=== PATIENT | female | born 1950 | race Asian ===

== ENCOUNTER → 2017-12-11 | Outpatient (CLI) | payer OTHER ==
[~2017-12-11] MED LIST: ASPI81TA80 PO; ATOR80TA PO; INSU100C4 SQ; METF10002 PO; PIOG15TA6 PO; [UNRECOGNIZED DRUG - CODE] GT
== END | disposition home or self-care (01) ==
LOC: EMPHLTH 11:00
PROVIDERS: ATTEND Internal Medicine
DX: R76.11 Nonspecific reaction to tuberculin skin test without active tuberculosis (principal)

== ENCOUNTER 2023-07-27 17:11 | Emergency (ER) | payer MEDICARE, OTHER ==
[~2023-07-27] VITALS: Ht 157.5 cm; Wt 84.1 kg
[~2023-07-27 17:11] MED LIST changes: +GLYB5TAB9 GT; +METF-446 PO; -METF10002 PO; -[UNRECOGNIZED DRUG - CODE] GT
[2023-07-27 17:20] VITALS: TEMP 98.2
[2023-07-27 17:45] VITALS: BP 154/79; PULSE 81; RESP 17
[2023-07-27] MEDS ORDERED: ACETAMINOPHEN 500 MG TABLET PO ONE (18:00)
== END 2023-07-27 20:27 | disposition home or self-care (01) ==
LOC: EMS 17:12
DX: S13.4XXA Sprain of ligaments of cervical spine, initial encounter (principal); E11.9 Type 2 diabetes mellitus without complications; E78.00 Pure hypercholesterolemia, unspecified; Z98.890 Other specified postprocedural states; V89.2XXA Person injured in unspecified motor-vehicle accident, traffic, initial encounter; Y93.89 Activity, other specified; Y92.89 Other specified places as the place of occurrence of the external cause; Y99.8 Other external cause status
CPT/HCPCS: 70450; 72125; 99284

== ENCOUNTER 2023-12-21 00:31 | Emergency (ER) | payer MEDICARE, OTHER ==
[~2023-12-21] VITALS: Ht 162.6 cm; Wt 95.5 kg
[2023-12-21 01:26] LABS: COVID AG,FIA SOURCE NASAL SWAB
[2023-12-21 01:26] LABS: GLUCOMETER DEV NAME(LOC) ER.6; GLUCOSE,POINT OF CARE 114 MG/DL (70-110)
[2023-12-21 01:29] LABS: RESPIRATORY SYNCYTIAL VIRS,FIA NEGATIVE (Negative)
[2023-12-21 01:30] LABS: INFLUENZA TYPE A NEGATIVE FOR TYPE A (NEGATIVE); INFLUENZA TYPE B NEGATIVE FOR TYPE B (NEGATIVE); SARS-COV2 (COVID) ANTIGEN,FIA Negative (Negative)
[2023-12-21 01:46] LABS: BASOPHILS % (AUTO) 0.6 % (0.0-2.0); EOSINOPHILS % (AUTO) 0.9 % (1.0-6.0); HEMATOCRIT 41.7 % (36-46); HEMOGLOBIN 12.8 g/dL (12.0-16.0); LYMPHOCYTES # (AUTO) 2.4 K/uL (1.0-4.8); LYMPHOCYTES % (AUTO) 17.7 % (22.0-44.0); MEAN CORPUSCULAR HEMOGLOBIN 22.2 pg (26.0-34.0); MEAN CORPUSCULAR HGB CONC 30.8 G/dL (31.0-37.0); MEAN CORPUSCULAR VOLUME 72 fL (80-100); MONOCYTES # (AUTO) 1.8 K/uL (0.1-1.0); MONOCYTES % (AUTO) 12.8 % (2.0-9.0); NEUTROPHILS # (AUTO) 9.4 K/uL (1.8-7.7); PLATELET COUNT (AUTO) 291 K/uL (150-450); RED BLOOD CELL COUNT(AUTO) 5.78 MIL/uL (4.00-5.20); RED CELL DISTRIBUTION WIDTH 16.3 % (11.5-14.5); WHITE BLOOD COUNT (AUTO) 13.8 K/uL (4.5-11.0)
[2023-12-21 02:05] LABS: ANION GAP 7 mmol/L (8-16); CALCIUM, TOTAL 8.7 mg/dL (8.8-10.5); CARBON DIOXIDE 33 mmol/L (22-29); CHLORIDE 99 mmol/L (98-107); CREATININE 0.76 mg/dL (0.60-1.30); GLOMERULAR FILTR. RATE CALC > 60 mL/min (>60); GLUCOSE,RANDOM 104 mg/dL (70-110); POTASSIUM 4.1 mmol/L (3.5-5.1); SODIUM SERUM 139 mmol/L (136-145); UREA NITROGEN, BLOOD 9 mg/dL (7-18)
[2023-12-21 02:09] LABS: RBC MORPHOLOGY COMMENT ABNORMAL RBC MORPH
[2023-12-21 02:11] LABS: ALANINE AMINOTRANSFERASE 15 U/L (12-78); ALBUMIN 2.8 g/dL (3.4-5.0); ALKALINE PHOSPHATASE 67 U/L (46-116); ASPARTATE AMINOTRANSFERASE 27 U/L (15-37); BILIRUBIN,TOTAL 0.3 mg/dL (0.1-1.0); TOTAL PROTEIN, SERUM 9.2 g/dL (6.4-8.2)
[2023-12-21] MEDS: MethylPREDNISolone SOD SUCC 125 MG/2 ML VIAL IVP ONE (02:22)
[2023-12-21] MEDS: IPRATROPIUM BROMIDE 0.5 MG/2.5 ML NEB SOLUTION NEB ONE ×2 (03:11→04:25)
[2023-12-21] MEDS: ALBUTEROL SULFATE 2.5 MG/0.5 ML NEB SOLUTION NEB ONE ×2 (03:12→04:25)
[2023-12-21] MEDS ORDERED: 0.9% SODIUM CHLORIDE 10 ML SYRINGE IVP PRN (03:15)
[2023-12-21 03:27] VITALS: PULSE 96; RESP 18; O2SAT 97; O2SAT 98
[2023-12-21] MEDS: CefTRIAXone 1 GM/DEXTROSE 50 ML IV ONE (03:51)
[2023-12-21] MEDS: SODIUM CHLORIDE 0.9% 1,650 ML IV ONE (03:51)
[2023-12-21] MEDS: FUROSEMIDE 40 MG/4 ML VIAL IVP ONE (04:26)
[2023-12-21] MEDS: ASPIRIN 325 MG TABLET PO ONE (04:27)
[2023-12-21 04:29] VITALS: BP 124/67; TEMP 97.8
[2023-12-21 04:31] VITALS: PULSE 90; RESP 17; O2SAT 95
[2023-12-21 04:31] LABS: TROPONIN I-HIGH SENSITIVITY 15 ng/L (<51)
== END 2023-12-21 07:20 | disposition short-term general hospital (02) ==
LOC: EMS 00:34
DX: A41.9 Sepsis, unspecified organism (principal); J18.9 Pneumonia, unspecified organism; R53.1 Weakness; E11.9 Type 2 diabetes mellitus without complications; E78.00 Pure hypercholesterolemia, unspecified; Z88.0 Allergy status to penicillin; Z20.822 Contact with and (suspected) exposure to COVID-19
CPT/HCPCS: 99291; 96365; 71045; 96375; 87426; 80053; 82962; 83605; 83880; 87420; 84484; 85025; 87040; 87804; 36415; 94640; 93005; 84145; J0696; J1940; J2930; J7030; 99285; J7613

== ENCOUNTER 2024-06-09 16:45 | Inpatient (IN) | payer MEDICARE, OTHER ==
[~2024-06-09] VITALS: Ht 162.6 cm; Wt 95.5 kg
[2024-06-09 19:40] LABS: GLUCOMETER DEV NAME(LOC) ER.7; GLUCOSE,POINT OF CARE 264 MG/DL (70-110)
[2024-06-09] MEDS: SODIUM CHLORIDE 0.9% 2,850 ML IV ONE (19:53)
[2024-06-09] MEDS: HYDROmorphone HCL 2 MG/ML SYRINGE IVP ONE (19:54)
[2024-06-09] MEDS: ACETAMINOPHEN 500 MG TABLET PO ONE (19:54)
[2024-06-09] MEDS: ONDANSETRON HCL 4 MG/2 ML VIAL IVP ONE (19:54)
[2024-06-09] MEDS: 0.9% SODIUM CHLORIDE 10 ML SYRINGE IVP PRN (20:23)
[2024-06-09] MEDS: CefTRIAXone 1 GM/DEXTROSE 50 ML IV ONE (20:23)
[2024-06-09] MEDS: KETOROLAC TROMETHAMINE 30 MG/ML VIAL IVP ONE (20:23)
[2024-06-09 20:44] LABS: ANION GAP 9 mmol/L (8-16); CALCIUM, TOTAL 8.4 mg/dL (8.8-10.5); CARBON DIOXIDE 27 mmol/L (22-29); CHLORIDE 97 mmol/L (98-107); CREATININE 1.05 mg/dL (0.60-1.30); GLOMERULAR FILTR. RATE CALC 51 mL/min (>60); GLUCOSE,RANDOM 273 mg/dL (70-110); SODIUM SERUM 133 mmol/L (136-145); UREA NITROGEN, BLOOD 18 mg/dL (7-18)
[2024-06-09 20:47] LABS: HEMATOCRIT 43.1 % (36-46); HEMOGLOBIN 13.3 g/dL (12.0-16.0); MEAN CORPUSCULAR HEMOGLOBIN 22.2 pg (26.0-34.0); MEAN CORPUSCULAR HGB CONC 30.8 G/dL (31.0-37.0); MEAN CORPUSCULAR VOLUME 72 fL (80-100); PLATELET COUNT (AUTO) 254 K/uL (150-450); RED BLOOD CELL COUNT(AUTO) 5.98 MIL/uL (4.00-5.20); RED CELL DISTRIBUTION WIDTH 15.4 % (11.5-14.5); WHITE BLOOD COUNT (AUTO) 22.3 K/uL (4.5-11.0)
[2024-06-09 20:49] LABS: PROTHROMBIN TIME 10.9 SEC (9.4-11.6)
[2024-06-09 20:50] LABS: ALANINE AMINOTRANSFERASE 12 U/L (12-78); ALKALINE PHOSPHATASE 63 U/L (46-116); ASPARTATE AMINOTRANSFERASE 19 U/L (15-37); BILIRUBIN,TOTAL 0.8 mg/dL (0.1-1.0); LIPASE 25 U/L (16-77); TOTAL PROTEIN, SERUM 8.3 g/dL (6.4-8.2)
[2024-06-09 21:05] LABS: LACTIC ACID 2.1 mmol/L (0.4-2.0)
[2024-06-09 21:09] LABS: BAND NEUTROPHILS % (MANUAL) 5 % (0-5); LYMPHOCYTES % (MANUAL) 7 % (22-44); MONOCYTES % (MANUAL) 10 % (2-9); SEGMENTED NEUTROPHILS % 78 % (40-70); TOTAL CELLS COUNTED 100
[2024-06-09 21:10] LABS: RBC MORPHOLOGY COMMENT ABNORMAL RBC MORPH
[2024-06-09 21:18] LABS: APPEARANCE,URINE TURBID (CLEAR); BILIRUBIN,URINE NEGATIVE (NEGATIVE); COLOR,URINE ORANGE (YELLOW); GLUCOSE, URINE (UA) 300-500 mg/dL (NEGATIVE); KETONES,URINE TRACE mg/dL (NEGATIVE); LEUKOCYTE ESTERASE ,URINE LARGE (NEGATIVE); NITRATE,URINE NEGATIVE (NEGATIVE); OCCULT BLOOD,URINE LARGE (NEGATIVE); PROTEIN,URINE 300-600,SEE CONFIRM mg/dL (NEGATIVE); SPECIFIC GRAVITIY, URINE 1.018 (1.003-1.030); UROBILINOGEN,URINE <=1.0 mg/dL (<=1.0)
[2024-06-09] MEDS ORDERED: OxyCODONE HCL/ACETAMINOPHEN 5-325 MG TABLET PO PRN (21:30)
[2024-06-09] MEDS ORDERED: DEXTROSE 50%-WATER 25 GM/50 ML SYRINGE IVP PRN (21:30)
[2024-06-09 21:51] LABS: WBC,URINE Full Field /HPF (0-5)
[2024-06-09 21:52] LABS: BACTERIA,URINE Moderate /HPF (None Seen); SQUAMOUS EPITHELIAL CELL,UR Few /LPF (None Seen)
[2024-06-09 21:53] LABS: SULFOSALICYLIC ACID,URINE 1+ (Negative)
[2024-06-09] MEDS: SODIUM CHLORIDE 0.9% 1,000 ML IV ONE (22:28)
[2024-06-09] MEDS: HEPARIN SODIUM,PORCINE 5,000 UNITS/ML VIAL SQ SCH (23:46)
[2024-06-10 02:15] VITALS: BP 134/50; PULSE 64; RESP 20; TEMP 98.7; O2SAT 95
[2024-06-10] MEDS: INSULIN LISPRO 100 UNITS/ML SQ PRN (05:33)
[2024-06-10 06:11] LABS: GLUCOMETER DEV NAME(LOC) 4E.2; GLUCOSE,POINT OF CARE 276 MG/DL (70-110)
[2024-06-10] MEDS ORDERED: ROCURONIUM BROMIDE 10 MG/ML 5 ML VIAL ONE (06:20)
[2024-06-10] MEDS ORDERED: PROPOFOL 1% ISO-OSM 1000 MG/100 ML BOTTLE ONE (06:20)
[2024-06-10] MEDS ORDERED: PHENYLEPHRINE HCL 10 MG/ML VIAL ONE (06:20)
[2024-06-10] MEDS ORDERED: SUGAMMADEX SODIUM 200 MG/2 ML VIAL IVP ONE (06:20)
[2024-06-10] MEDS ORDERED: LIDOCAINE/PF 2% 5 ML VIAL ONE (06:20)
[2024-06-10] MEDS ORDERED: EPHEDrine SULFATE 50 MG/ML VIAL ONE (06:20)
[2024-06-10] MEDS ORDERED: ONDANSETRON HCL 4 MG/2 ML VIAL ONE (06:20)
[2024-06-10] MEDS ORDERED: PROPOFOL 1% 20 ML VIAL IVP ONE (06:20)
[2024-06-10] MEDS ORDERED: GLYCOPYRROLATE 0.2 MG/ML VIAL ONE (06:20)
[2024-06-10] MEDS ORDERED: 0.9% SODIUM CHLORIDE 10 ML VIAL ONE (06:20)
[2024-06-10] MEDS ORDERED: INFLUENZA VIRUS VACCINE TVS (6MO+) 2024-25/PF 45 MCG/0.5 ML SYRINGE IM. ONE (06:30)
[2024-06-10] MEDS: FAMOTIDINE 20 MG TABLET PO SCH (08:02)
[2024-06-10] MEDS: SODIUM CHLORIDE 0.9% 1,000 ML IV SCH (08:13)
[2024-06-10 08:36] VITALS: BP 108/49; PULSE 78; RESP 19; TEMP 98; O2SAT 95
[2024-06-10] MEDS ORDERED: IOHEXOL 240 MG/ML 20 ML VIAL ONE ×2 (12:30→12:37)
[2024-06-10] MEDS ORDERED: SODIUM CL IRRIG SOLN BAG 3,000 ML IRRIG ONE (12:31)
[2024-06-10] MEDS ORDERED: FentaNYL CITRATE PF 100 MCG/2 ML VIAL IVP PRN (15:00)
[2024-06-10] MEDS ORDERED: OxyCODONE HCL/ACETAMINOPHEN 5-325 MG TABLET PO PRN (16:45)
[2024-06-10 17:25] LABS: GLUCOMETER DEV NAME(LOC) 6N.2B; GLUCOSE,POINT OF CARE 129 MG/DL (70-110)
[2024-06-10 17:33] VITALS: BP 106/47; PULSE 87; RESP 19; TEMP 98.5; O2SAT 88
[2024-06-10] MEDS: CefTRIAXone 1 GM/DEXTROSE 50 ML IV SCH (18:30)
[2024-06-10] MEDS: OXYGEN THERAPY IH SCH (20:00)
[2024-06-10] MEDS ORDERED: CefTRIAXone 1 GM/DEXTROSE 50 ML IV SCH (20:00)
[2024-06-10 20:57] VITALS: BP 122/65; PULSE 92; RESP 18; TEMP 99.1; O2SAT 94
[2024-06-10] MEDS: ACETAMINOPHEN 325 MG TABLET PO PRN (21:06)
[2024-06-11] MEDS: SODIUM CHLORIDE 0.9% 1,000 ML IV SCH (03:38)
[2024-06-11 04:52] VITALS: BP 118/64; PULSE 78; RESP 18; TEMP 98.2; O2SAT 93
[2024-06-11 05:36] LABS: GLUCOMETER DEV NAME(LOC) 6N.2B; GLUCOSE,POINT OF CARE 223 MG/DL (70-110)
[2024-06-11 06:06] LABS: GLUCOMETER DEV NAME(LOC) 6N.2B; GLUCOSE,POINT OF CARE 174 MG/DL (70-110)
[2024-06-11 06:15] LABS: GLUCOMETER DEV NAME(LOC) SDS.; GLUCOSE,POINT OF CARE 133 MG/DL (70-110)
[2024-06-11 08:46] VITALS: BP 119/51; PULSE 87; RESP 19; TEMP 98.9; O2SAT 92
[2024-06-11] MEDS ORDERED: SODIUM BICARBONATE 50 MEQ/50 ML VIAL ONE (10:05)
[2024-06-11] MEDS ORDERED: LIDOCAINE/PF 1% 30 ML VIAL ONE (10:05)
[2024-06-11] MEDS ORDERED: MIDAZOLAM HCL 2 MG/2 ML VIAL ONE (10:23)
[2024-06-11] MEDS ORDERED: FentaNYL CITRATE PF 100 MCG/2 ML VIAL ONE (10:23)
[2024-06-11] MEDS ORDERED: IOHEXOL 300 MG/ML 50 ML VIAL ONE (10:42)
[2024-06-11] MEDS: MIDAZOLAM HCL 2 MG/2 ML VIAL IVP ONE (10:43)
[2024-06-11] MEDS: CefTRIAXone 1 GM/DEXTROSE 50 ML IV ONE (10:43)
[2024-06-11] MEDS: FentaNYL CITRATE PF 100 MCG/2 ML VIAL IVP ONE (10:44)
[2024-06-11] MEDS: IOHEXOL 300 MG/ML 50 ML VIAL IVP ONE (11:28)
[2024-06-11 12:31] LABS: GLUCOMETER DEV NAME(LOC) 6N.2B; GLUCOSE,POINT OF CARE 161 MG/DL (70-110)
[2024-06-11 13:52] VITALS: BP 118/54; PULSE 78; RESP 18; TEMP 98.9; O2SAT 95
[2024-06-11 14:44] LABS: BASOPHILS % (AUTO) 0.6 % (0.0-2.0); EOSINOPHILS % (AUTO) 0.3 % (1.0-6.0); HEMATOCRIT 38.3 % (36-46); HEMOGLOBIN 11.7 g/dL (12.0-16.0); LYMPHOCYTES # (AUTO) 1.7 K/uL (1.0-4.8); LYMPHOCYTES % (AUTO) 13.5 % (22.0-44.0); MEAN CORPUSCULAR HEMOGLOBIN 22.2 pg (26.0-34.0); MEAN CORPUSCULAR HGB CONC 30.5 G/dL (31.0-37.0); MEAN CORPUSCULAR VOLUME 73 fL (80-100); MONOCYTES # (AUTO) 1.2 K/uL (0.1-1.0); MONOCYTES % (AUTO) 9.5 % (2.0-9.0); NEUTROPHILS # (AUTO) 9.8 K/uL (1.8-7.7); NEUTROPHILS % (AUTO) 76.1 % (40.0-70.0); PLATELET COUNT (AUTO) 240 K/uL (150-450); RED BLOOD CELL COUNT(AUTO) 5.25 MIL/uL (4.00-5.20); RED CELL DISTRIBUTION WIDTH 16.1 % (11.5-14.5); WHITE BLOOD COUNT (AUTO) 12.8 K/uL (4.5-11.0)
[2024-06-11 15:02] LABS: ALANINE AMINOTRANSFERASE 22 U/L (12-78); ALBUMIN 2.4 g/dL (3.4-5.0); ALKALINE PHOSPHATASE 79 U/L (46-116); ANION GAP 7 mmol/L (8-16); ASPARTATE AMINOTRANSFERASE 30 U/L (15-37); BILIRUBIN,TOTAL 0.4 mg/dL (0.1-1.0); CALCIUM, TOTAL 8.1 mg/dL (8.8-10.5); CARBON DIOXIDE 27 mmol/L (22-29); CHLORIDE 102 mmol/L (98-107); CREATININE 0.83 mg/dL (0.60-1.30); GLOMERULAR FILTR. RATE CALC > 60 mL/min (>60); GLUCOSE,RANDOM 233 mg/dL (70-110); POTASSIUM 4.4 mmol/L (3.5-5.1); SODIUM SERUM 136 mmol/L (136-145); TOTAL PROTEIN, SERUM 7.3 g/dL (6.4-8.2); UREA NITROGEN, BLOOD 18 mg/dL (7-18)
[2024-06-11 15:08] LABS: RBC MORPHOLOGY COMMENT ABNORMAL RBC MORPH
[2024-06-11] MEDS: OxyCODONE HCL/ACETAMINOPHEN 5-325 MG TABLET PO PRN (15:52)
[2024-06-11 20:04] VITALS: BP 122/63; PULSE 80; RESP 18; TEMP 98.1; O2SAT 93
[2024-06-12 01:21] LABS: GLUCOMETER DEV NAME(LOC) 6N.2B; GLUCOSE,POINT OF CARE 219 MG/DL (70-110)
[2024-06-12 01:21] LABS: GLUCOMETER DEV NAME(LOC) 6N.2B; GLUCOSE,POINT OF CARE 233 MG/DL (70-110)
[2024-06-12 05:42] VITALS: BP 105/58; PULSE 72; RESP 18; TEMP 98.4; O2SAT 93
[2024-06-12 06:31] LABS: GLUCOMETER DEV NAME(LOC) 6N.2B; GLUCOSE,POINT OF CARE 163 MG/DL (70-110)
[2024-06-12 08:56] VITALS: BP 128/60; PULSE 85; RESP 17; TEMP 97.8; O2SAT 94
[2024-06-12] MEDS: HYDROCODONE/ACETAMINOPHEN 5-325 MG TABLET PO PRN (09:19)
[2024-06-12] MEDS: MAGNESIUM HYDROXIDE SUSPENSION 30 ML UDCUP PO PRN (13:28)
[2024-06-12 15:28] VITALS: BP 126/63; PULSE 77; RESP 18; TEMP 97.8; O2SAT 94
[2024-06-12 19:32] VITALS: BP 140/64; PULSE 81; RESP 20; TEMP 97.5; O2SAT 96
[2024-06-12] MEDS: PHENAZOPYRIDINE HCL 100 MG TABLET PO SCH (19:44)
[2024-06-13 03:57] VITALS: BP 130/67; PULSE 75; RESP 16; TEMP 97.8; O2SAT 96
[2024-06-13 06:46] LABS: GLUCOMETER DEV NAME(LOC) 6N.2B; GLUCOSE,POINT OF CARE 240 MG/DL (70-110)
[2024-06-13 06:46] LABS: GLUCOMETER DEV NAME(LOC) 6N.2B; GLUCOSE,POINT OF CARE 209 MG/DL (70-110)
[2024-06-13 06:46] LABS: GLUCOMETER DEV NAME(LOC) 6N.2B; GLUCOSE,POINT OF CARE 206 MG/DL (70-110)
[2024-06-13 06:46] LABS: GLUCOMETER DEV NAME(LOC) 6N.2B; GLUCOSE,POINT OF CARE 131 MG/DL (70-110)
[2024-06-13 07:20] VITALS: BP 128/72; PULSE 71; RESP 18; TEMP 98.2; O2SAT 92
[2024-06-13 08:44] LABS: BASOPHILS % (AUTO) 0.6 % (0.0-2.0); EOSINOPHILS % (AUTO) 2.6 % (1.0-6.0); HEMATOCRIT 38.2 % (36-46); HEMOGLOBIN 11.9 g/dL (12.0-16.0); LYMPHOCYTES # (AUTO) 1.7 K/uL (1.0-4.8); LYMPHOCYTES % (AUTO) 21.6 % (22.0-44.0); MEAN CORPUSCULAR HEMOGLOBIN 22.8 pg (26.0-34.0); MEAN CORPUSCULAR HGB CONC 31.3 G/dL (31.0-37.0); MEAN CORPUSCULAR VOLUME 73 fL (80-100); MONOCYTES # (AUTO) 0.8 K/uL (0.1-1.0); MONOCYTES % (AUTO) 10.7 % (2.0-9.0); NEUTROPHILS # (AUTO) 4.9 K/uL (1.8-7.7); NEUTROPHILS % (AUTO) 64.5 % (40.0-70.0); PLATELET COUNT (AUTO) 251 K/uL (150-450); RED BLOOD CELL COUNT(AUTO) 5.24 MIL/uL (4.00-5.20); RED CELL DISTRIBUTION WIDTH 15.7 % (11.5-14.5); WHITE BLOOD COUNT (AUTO) 7.7 K/uL (4.5-11.0)
[2024-06-13 08:52] LABS: ANION GAP 8 mmol/L (8-16); CALCIUM, TOTAL 8.2 mg/dL (8.8-10.5); CARBON DIOXIDE 27 mmol/L (22-29); CHLORIDE 103 mmol/L (98-107); CREATININE 0.59 mg/dL (0.60-1.30); GLOMERULAR FILTR. RATE CALC > 60 mL/min (>60); GLUCOSE,RANDOM 182 mg/dL (70-110); POTASSIUM 4.9 mmol/L (3.5-5.1); SODIUM SERUM 138 mmol/L (136-145); UREA NITROGEN, BLOOD 9 mg/dL (7-18)
[2024-06-13 14:00] LABS: GLUCOMETER DEV NAME(LOC) 4E.2; GLUCOSE,POINT OF CARE 226 MG/DL (70-110)
[2024-06-13 14:56] VITALS: BP 137/66; PULSE 73; RESP 18; TEMP 98.1; O2SAT 94
[2024-06-13] MEDS ORDERED: PHEN-947 PO (15:11)
[2024-06-13] MEDS ORDERED: CEPH-558 PO (15:11)
== END 2024-06-13 16:21 | disposition home health service (06) | DRG 872 ==
LOC: EMS 16:47 → EDH 21:28 → 4E 06-10 01:50
PROVIDERS: ADMIT Internal Medicine; ATTEND Internal Medicine
PROC: BT1F1ZZ Fluoroscopy of Left Kidney, Ureter and Bladder using Low Osmolar Contrast (ICD-10-PCS; principal; 2024-06-10 14:30)
PROC: 0T9430Z Drainage of Left Kidney Pelvis with Drainage Device, Percutaneous Approach (ICD-10-PCS; 2024-06-11)
DX: A41.9 Sepsis, unspecified organism (principal); N13.6 Pyonephrosis; N20.2 Calculus of kidney with calculus of ureter; N17.9 Acute kidney failure, unspecified; E10.65 Type 1 diabetes mellitus with hyperglycemia; I10 Essential (primary) hypertension; E78.00 Pure hypercholesterolemia, unspecified; Z83.3 Family history of diabetes mellitus; Z79.4 Long term (current) use of insulin; Z80.1 Family history of malignant neoplasm of trachea, bronchus and lung; Z88.0 Allergy status to penicillin
CPT/HCPCS: 50430; 51701; 71045; 74176; 76000; 76937; 76942; 80048; 80053; 81001; 81002; 82962; 83605; 83690; 84145; 85025; 85610; 87040; 87086; 87147; 93005; 99285; G0378; J0696; J1171; J1644; J1885; J2250; J2405; J2704; J3010; J3490; J7030; Q9966; Q9967; 36415-L1; 36415-TC; Z7610